=== PATIENT | female | born 1975 | race Asian ===

== ENCOUNTER 2020-02-03 09:41 | Emergency (ER) | payer OTHER, SELFPAY ==
--- NOTE | 2020-02-03 09:44 | ED_ITS ---
HPI - General Adult General Chief complaint: Back Pain/Injury Stated complaint: back pain the whole thing Time Seen by Provider: 02/03/20 09:43 Source: patient Mode of arrival: Ambulatory Limitations: no limitations History of Present Illness HPI narrative: 44-year-old female here for evaluation of bilateral back pain. She states that it starts from just below are shoulder blades and extends down to her hips. Is been going on for the past 2 days. She states that just prior to this she was moving some heavy rocks around her garden. There is not 1 specific incident that caused her pain to happen. Has tried some [id number] ibuprofen which he states helped for short period of time but then the symptoms returned. She also tried some of her 's oxycodone which apparently has not helped any of her symptoms. Came in this morning because she had a very difficult time getting out of bed. She denies any other associated symptoms. No rashes. Related Data Home Medications Medication Instructions Recorded Confirmed [ CONTROL PILLS] QDAY #0 05/12/13 Previous Rx's Medication Instructions Recorded cyclobenzaprine 10 mg PO TID PRN #12 tab 02/03/20 naproxen [Naprosyn] 500 mg PO BID PRN #30 tab 02/03/20 Review of Systems Constitutional Constitutional: Denies fever(s) and Denies headache(s) ENT Ears, Nose, Mouth, and Throat: Denies vertigo, Denies dizziness, Denies headache(s) and Denies disequilibrium Cardiovascular Cardiovascular: Denies chest pain and Denies dyspnea Respiratory Respiratory: Denies dyspnea Gastrointestinal Gastrointestinal: Denies abdominal pain Musculoskeletal Musculoskeletal: Reports back pain Integumentary/Breasts Skin/Breast: Denies lesions and Denies rash Neurologic Neurologic: Denies behavioral changes, Denies vertigo, Denies dizziness, Denies headache(s), Denies paresthesias and Denies disequilibrium Psychiatric Psychiatric: Denies behavioral changes Hematologic/Lymphatic Hematologic/Lymphatic: Denies easy bleeding and Denies easy bruising Patient History Medical History Healthy adult (Acute) Social History Smoking Status: Never smoker Exam Initial Vital Signs Initial Vital Signs: Vital Signs Temperature 98.3 F 02/03/20 09:49 Pulse Rate 91 H 02/03/20 09:49 Respiratory Rate 16 02/03/20 09:49 Blood Pressure 133/83 02/03/20 09:49 Pulse Oximetry 99 02/03/20 09:49 Const General: cooperative and comfortable Limitations: mental status not altered HENHI Head: normal to inspection and normocephalic Resp Effort & Inspection: normal respiratory effort Auscultation: clear to auscultation bilaterally Back/Spine/Pelvis Cervical Spine: No cervical spasm and No cervical spinal tenderness Thoracic/Lumbar Spine: paraspinal tenderness, No thoracic spinal tenderness and No lumbar spinal tenderness Skin Lesions: no lesions Rashes: no rashes Neuro General: alert and awake Cognition: normal cognition Gait: normal gait Extrem General: normal to inspection and capillary refill normal Psych Appearance: grossly normal and well kempt Course Vital Signs Vital signs: Vital Signs - 8 hr 02/03/20 09:49 Temperature 98.3 F Pulse Rate 91 H Respiratory Rate 16 Blood Pressure 133/83 Pulse Oximetry 99 Medical Decision Making MDM Narrative Medical decision making narrative: I suspect symptoms are musculoskeletal in origin. There lateral along the erector spinae muscles. We did discuss rice. Discussed massage ice and heat and staying active. Was sent home with muscle relaxers. Feel we could hold on radiologic studies for now. Patient was given return precautions and follow-up instructions. She expressed understanding and agreement. Discharge Plan Departure Patient Disposition: Home Clinical Impression: Back strain Qualifiers: Encounter type: initial encounter Qualified Code(s): S39.012A - Strain of muscle, fascia and tendon of lower back, initial encounter Instructions: Activity May Be Better then Rest for Low Back Pain Recovery, DI for Back Strain or Sprain Activity Restrictions/Additional Instructions: Recommend that you continue with light stretching, heat/ice, massage and staying as active as possible. These have all been shown to improve the condition that you have. Also remember the you continue to take the anti-inflammatories has directed. Also take the muscle relaxers as directed. Contact your primary provider for follow-up. The prescriptions have been electronically transmitted to [facility] Prescriptions: New naproxen [Naprosyn] 500 mg tablet 500 mg PO BID PRN (Reason: pain) Qty: 30 RF: 0 cyclobenzaprine 10 mg tablet 10 mg PO TID PRN (Reason: muscle spasm) Qty: 12 RF: 0 No Action [ CONTROL PILLS] QDAY Qty: 0 RF: 0
[2020-02-03 09:49] VITALS: BP 133/83; PULSE 91; RESP 16; TEMP 36.8; O2SAT 99; BMI 24.0
== END 2020-02-03 10:02 | disposition home or self-care (01) ==
PROVIDERS: Emergency Provider Emergency Medicine
DX: S39.012A Strain of muscle, fascia and tendon of lower back, initial encounter (principal); X50.0XXA Overexertion from strenuous movement or load, initial encounter
CPT/HCPCS: 99281

== ENCOUNTER → 2020-02-05 07:35 | Outpatient (CLI) | payer OTHER, SELFPAY ==
--- NOTE | 2020-02-05 | DI.US.S_ITS ---
PROCEDURE: US PELVIC COMPLETE INDICATIONS: LEFT LOWER QUADRANT MASS TECHNIQUE: Real-time scanning was performed of the pelvic organs, with image documentation. Additional endovaginal scanning was necessary due to incomplete visualization of the adnexal and endometrial structures by transabdominal scanning. COMPARISON: None. FINDINGS: Transabdominal scanning: Limited scanning through the kidneys shows no hydronephrosis. No pathologic free abdominal or pelvic fluid. Endovaginal scanning: Uterus: Uterus 12.8 x 5.8 x 5.4 cm. The endometrium measures 2 mm in combined thickness. Small amount of fluid is noted within the endometrial cavity. There is a focal calcification measuring 1.3 x 0.8 x 0.6 cm in size. This may represent sequela of previous trauma, inflammation/infection, or surgical change. Ovaries: Right ovary measures 3.4 x 2.6 x 3.0 cm. There is a 1.7 cm simple cyst seen on the right. The left ovary is not definitively visualized. There is a large 13.0 x 9.7 x 10.1 cm cystic structure in the midline pelvis which appears avascular and contains diffuse low-level internal echoes. No focal internal solid components visualized. No thick internal septations. Its origin is not definitively visualized. IMPRESSION: Large midline cystic structure in the pelvis measuring 13.0 x 9.7 x 10.1 cm with findings suggestive of an endometrioma versus hemorrhagic cyst. Its origin is not definitively visualized. Additionally, the left ovary was not well-visualized on today's study. Recommend followup pelvic ultrasound in 6-12 weeks for reevaluation. If findings persist, a pelvic MRI can be considered at that time to better characterize. Dictated by: Gilberto Landis M.D. on 02/05/2020 at 8:31 Approved by: Gilberto Landis M.D. on 02/05/2020 at 8:38
--- NOTE | 2020-02-05 | DI.CT.S_ITS ---
PROCEDURE: CT ABDOMEN PELVIS W CON INDICATIONS: Left lower quadrant abdominal swelling, mass TECHNIQUE: After the administration of oral and intravenous contrast, 5 mm thick sections acquired from the diaphragms to the symphysis. 5 mm thick coronal and sagittal reformats were performed. For radiation dose reduction, the following was used: automated exposure control, adjustment of mA and/or kV according to patient size. COMPARISON: [facility], , PELVIC COMPLETE, 02/05/2020, 7:43. FINDINGS: Image quality: Excellent. ABDOMEN: Lung bases: Lung bases are clear. Heart size is normal. Solid organs: Mild subcapsular enhancement seen within the dome/left lobe image 16/2 and top of the liver dome image 13/2, possibly vascular shunting although nonspecific Hepatic steatosis. Gallbladder grossly negative. Biliary system is non-dilated. Pancreas enhances normally. Spleen is normal in size and enhancement. No adrenal nodules. Kidneys are normal in size and enhancement, without hydronephrosis. Peritoneum and bowel: Stomach, small bowel, and colon loops are normal in caliber and wall thickness. No free fluid or air. Nodes and vessels: No retroperitoneal or mesenteric adenopathy. Aorta and inferior vena cava are normal in caliber. Miscellaneous: No ventral hernias. PELVIS: Genitourinary: Large heterogeneous cystic and solid mass is seen occupying the pelvis overall measuring 16.0 x 9.3 cm on axial image 54/2. There is associated calcification measuring 5 mm on image 58/2. An ovary appears on image 52/2 in the right pelvis although the exact laterality is unclear given mass effect from pelvic mass. Miscellaneous: No inguinal hernias or adenopathy. Bones: No suspicious bony lesions. No vertebral body compression fractures. IMPRESSION: Large heterogeneous cystic and solid mass within the pelvis, highly suspicious for ovarian neoplasm and corresponds to the prior ultrasound findings. Recommend further oncologic surgical consultation and laparoscopic workup Subcentimeter areas of subcapsular enhancement within the dome of the liver, possibly vascular shunting although recommend attention to this area on followup studies Dictated by: Raheem Gallagher M.D. on 02/05/2020 at 9:43 Approved by: Raheem Gallagher M.D. on 02/05/2020 at 13:01
== END ==
PROVIDERS: PCP Student in an Organized Health Care Education/Training Program; Referring Provider Student in an Organized Health Care Education/Training Program; Visit Provider Student in an Organized Health Care Education/Training Program
DX: R19.04 Left lower quadrant abdominal swelling, mass and lump (principal); R10.32 Left lower quadrant pain
CPT/HCPCS: 74177; 76830; 76856; Q9967

== ENCOUNTER → 2021-09-01 11:55 | Outpatient (CLI) | payer OTHER, SELFPAY ==
[2021-09-01 15:42] LABS: Luteinizing Hormone 26.3 mIU/mL
[2021-09-03 14:41] LABS: Estrogen 319 pg/mL (.)
== END ==
PROVIDERS: PCP Family Medicine; Referring Provider Family Medicine; Visit Provider Family Medicine
DX: N95.1 Menopausal and female climacteric states (principal)
CPT/HCPCS: 36415; 82672; 83002

== ENCOUNTER → 2022-06-09 10:45 | Outpatient (CLI) | payer OTHER, SELFPAY ==
--- NOTE | 2022-06-09 10:47 | DI.US.S_ITS ---
PROCEDURE: US PELVIC COMPLETE INDICATIONS: RIGHT PELVIC PAIN TECHNIQUE: Real-time scanning was performed of the pelvic organs, with image documentation. Additional endovaginal scanning was necessary due to incomplete visualization of the adnexal and endometrial structures by transabdominal scanning. COMPARISON: [facility], , US PELVIC COMPLETE, 02/05/2020, 7:43. FINDINGS: Uterus: The uterus is surgically absent. Ovaries: The right ovary measures 3.6 x 2.1 x 2.0 cm, with a calculated ovarian volume of 7.9 cc. There are 2 simple right ovarian cysts, which measure 1.9 and 1.8 cm in diameter, respectively. There are fewer than 12 follicles within the right ovary. Other: No pathologic free abdominal or pelvic fluid. IMPRESSION: 1. 2 simple right ovarian cysts. In a premenopausal female, these are within normal limits for size. In a postmenopausal female, annual sonographic follow-up is recommended. We strive to produce accurate, complete, and clear reports of imaging services. To assist us in improving patient care, this report was composed using standard report templates and voice recognition software. Therefore, it may contain abnormal punctuation, insertions and/or omissions. Occasional wrong-word or sound-alike substitutions may occur. Though we review the report and make efforts to correct it, we do recommend that the report be read carefully in proper context to recognize any text inaccuracies. Dictated by: Azucena Mehta M.D. on 06/09/2022 at 12:17 Approved by: Azucena Mehta M.D. on 06/09/2022 at 12:19
== END ==
PROVIDERS: PCP Family Medicine; Referring Provider Family Medicine; Visit Provider Family Medicine
DX: Z90.721 Acquired absence of ovaries, unilateral (principal); R10.31 Right lower quadrant pain; Z90.710 Acquired absence of both cervix and uterus; N83.291 Other ovarian cyst, right side
CPT/HCPCS: 76830; 76856; 93976

== ENCOUNTER → 2023-03-08 10:33 | Outpatient (CLI) | payer OTHER, SELFPAY ==
[2023-03-08 11:55] LABS: Add Manual Diff / Slide Review NO; Basophils Absolute Auto 0 /uL (0-100); Eosinophils Absolute Auto 100 /uL (0-450); Eosinophils Percent Auto 1.5 % (2-4); Hematocrit 42.4 % (36-46); Hemoglobin 14.2 g/dL (12.0-16.0); Lymphocytes Absolute Auto 1700 /uL (1100-4500); Mean Corpuscular HGB Conc 33.6 % (30-36); Mean Corpuscular Hemoglobin 29.5 PG (26-34); Monocytes Absolute Auto 400 /uL (0-900); Monocytes Percent Auto 8.7 % (3-14); Neutrophils Absolute Auto 1900 /uL (1500-7000); Neutrophils Percent Auto 46.8 % (50-75); Platelet Count 254 X10^3/uL (150-400); Red Blood Cell Count 4.81 X10^6/uL (4.0-5.2); Red Cell Distribution Width 12.4 % (11.6-14.8)
[2023-03-08 12:02] LABS: HEMOLYSIS < 15 (0-50)
[2023-03-08 12:07] LABS: Alanine Aminotransferase 32 IU/L (<35); Albumin 4.5 g/dL (3.5-5.0); Albumin Globulin Ratio 1.2 (1.0-2.8); Alkaline Phosphatase 53 U/L (38-126); Aspartate Aminotransferase 28 IU/L (14-36); BUN Creatinine Ratio 19.6 (6-22); Bilirubin Total 0.5 mg/dL (0.2-1.3); Blood Urea Nitrogen 11 mg/dL (7-17); Calcium 9.3 mg/dL (8.4-10.2); Carbon Dioxide 29 mmol/L (22-32); Chloride 101 mmol/L (98-107); Cholesterol 312 mg/dL (140-199); Estimated Glomerular Filt Rate > 60 mL/min (>60); Globulin 3.9 g/dL (1.7-4.1); Glucose 101 mg/dL (70-100); HDL Cholesterol 76 mg/dL (40-60); LDL Cholesterol Calculated 211 mg/dL (<100); Potassium 3.9 mmol/L (3.4-5.1); Sodium 137 mmol/L (137-145); Total Protein 8.4 g/dL (6.3-8.2); Triglycerides 125 mg/dL (35-150)
[2023-03-08 12:38] LABS: Erythrocyte Sedimentation Rate 1 MM/HR (0-20)
[2023-03-08 12:40] LABS: TSH w/ Reflex to FT4 1.44 uIU/mL (0.47-4.68)
[2023-03-08 12:54] LABS: Luteinizing Hormone 31.2 mIU/mL
[2023-03-08 13:01] LABS: C-Reactive Protein Quant < 0.5 mg/dL (<1.0)
[2023-03-08 13:07] LABS: Rheumatoid Factor < 8.6 IU/mL (<12.0)
[2023-03-09 21:52] LABS: CCP Antibodies IgG/IgA 5 units (0-19)
[2023-03-11 19:34] LABS: ANA Screen, IFA Negative (.)
[2023-03-13 18:02] LABS: Estrogen 72 pg/mL (.)
== END ==
PROVIDERS: PCP Family Medicine; Referring Provider Family Medicine; Visit Provider Family Medicine
DX: G47.00 Insomnia, unspecified (principal); M25.50 Pain in unspecified joint; M25.60 Stiffness of unspecified joint, not elsewhere classified; Z90.710 Acquired absence of both cervix and uterus; N95.1 Menopausal and female climacteric states
CPT/HCPCS: 36415; 80053; 80061; 82672; 83002; 84443; 85025; 85651; 86038; 86140; 86200; 86430

== ENCOUNTER → 2023-03-29 13:39 | Outpatient (CLI) | payer OTHER, SELFPAY | PROVIDERS: Family Provider Family Medicine; PCP Family Medicine; Referring Provider Family Medicine; Visit Provider Family Medicine | DX: R00.2 Palpitations (principal) | CPT/HCPCS: 93246 ==

== ENCOUNTER → 2024-04-26 12:08 | Outpatient (CLI) | payer OTHER, SELFPAY ==
[2024-04-26 12:48] LABS: Add Manual Diff / Slide Review NO; Basophils Absolute Auto 0 /uL (0-100); Basophils Percent Auto 0.8 % (0-2); Eosinophils Absolute Auto 100 /uL (0-450); Eosinophils Percent Auto 1.3 % (2-4); Hematocrit 40.2 % (36-46); Hemoglobin 13.4 g/dL (12.0-16.0); Lymphocytes Absolute Auto 1700 /uL (1100-4500); Lymphocytes Percent Auto 32.1 % (25-40); Mean Corpuscular HGB Conc 33.3 % (30-36); Mean Corpuscular Hemoglobin 29.1 PG (26-34); Mean Corpuscular Volume 87.2 fL (80-100); Monocytes Absolute Auto 600 /uL (0-900); Monocytes Percent Auto 10.3 % (3-14); Neutrophils Absolute Auto 3000 /uL (1500-7000); Neutrophils Percent Auto 55.5 % (50-75); Platelet Count 276 X10^3/uL (150-400); Red Blood Cell Count 4.61 X10^6/uL (4.0-5.2); Red Cell Distribution Width 12.5 % (11.6-14.8); White Blood Cell Count 5.4 X10^3/uL (4.5-11.0)
[2024-04-26 13:15] LABS: Alanine Aminotransferase 23 IU/L (<35); Albumin 4.6 g/dL (3.5-5.0); Albumin Globulin Ratio 1.5 (1.0-2.8); Alkaline Phosphatase 58 U/L (38-126); Aspartate Aminotransferase 30 IU/L (14-36); BUN Creatinine Ratio 16.9 (6-22); Bilirubin Total 0.4 mg/dL (0.2-1.3); Blood Urea Nitrogen 11 mg/dL (7-17); Calcium 9.9 mg/dL (8.4-10.2); Carbon Dioxide 27 mmol/L (22-32); Chloride 105 mmol/L (98-107); Cholesterol 323 mg/dL (140-199); Estimated Glomerular Filt Rate > 60 mL/min (>60); Globulin 3.1 g/dL (1.7-4.1); Glucose 97 mg/dL (70-100); HDL Cholesterol 86 mg/dL (40-60); HEMOLYSIS < 15 (0-50); LDL Cholesterol Calculated 216 mg/dL (<100); Sodium 138 mmol/L (137-145); Total Protein 7.7 g/dL (6.3-8.2); Triglycerides 106 mg/dL (35-150); Uric Acid 4.2 mg/dL (2.5-6.2)
[2024-04-26 13:41] LABS: TSH w/ Reflex to FT4 1.16 uIU/mL (0.47-4.68)
[2024-04-26 14:28] LABS: Hemoglobin A1C% w Est Avg Glu 5.8 % (4.0-6.0)
== END ==
PROVIDERS: Family Provider Family Medicine; PCP Family Medicine; Referring Provider Family Medicine; Visit Provider Family Medicine
DX: Z00.00 Encounter for general adult medical examination without abnormal findings (principal); M10.9 Gout, unspecified; R73.03 Prediabetes
CPT/HCPCS: 36415; 80053; 80061; 83036; 84443; 84550; 85025

== ENCOUNTER → 2024-05-04 07:40 | Outpatient (CLI) | payer OTHER, SELFPAY ==
--- NOTE | 2024-05-04 07:41 | DI.US.S_ITS ---
PROCEDURE: US THYROID INDICATIONS: lymphadenopathy TECHNIQUE: Real-time scanning was performed of the thyroid gland, with image documentation. COMPARISON: None. FINDINGS: Thyroid: Right lobe measures 4.9 x 1.4 x 1.6 cm. Left lobe measures 4.6 x 1.3 x 1.4 cm. Isthmus is 0.2 cm thick. Echotexture is heterogeneous. There are several colloid cysts in each lobe, several in the right and a few in the left, the largest measuring 0.7 cm. The patient's area of pain corresponds to a few minimally prominent cervical chain lymph nodes which maintain fatty lory. Nodule number: 1 Location: Right superior pole Size: 1.3 x 0.9 x 1.0 cm. Composition: Solid Echogenicity: Isoechoic to hypoechoic Shape: wider than tall. Margins: Smooth, continually calcified Echogenic foci: Peripheral calcification Total points: Five ACR TI-RADS category: Four, moderately suspicious Nodule number: 2 Location: Right midpole Size: 1.2 x 0.8 x 0.6 cm. Composition: Solid Echogenicity: Isoechoic Shape: wider than tall. Margins: Smooth Echogenic foci: Punctate Total points: Six ACR TI-RADS category: Four, moderately suspicious Nodule number: 3 Location: Right inferior pole Size: 1.3 x 1.1 x 0.8 cm. Composition: Solid Echogenicity: Isoechoic to hypoechoic Shape: wider than tall. Margins: Smooth Echogenic foci: Punctate, some with comet tail artifact Total points: 6-7 ACR TI-RADS category: Five, highly suspicious Nodule number: 4 Location: Left inferior pole Size: 1.1 x 0.9 x 0.8 cm. Composition: Solid Echogenicity: Isoechoic Shape: wider than tall. Margins: Smooth Echogenic foci: None Total points: Four ACR TI-RADS category: Four, moderately suspicious IMPRESSION: Mildly prominent benign appearing lymph nodes in the right neck. Incidental note of thyroid nodules for which follow-up is recommended for all, and fine needle aspiration recommended for nodule 3. ACR TI-RADS definitions and recommendations: TI-RADS 1 (benign): 0 points. FNA not needed. TI-RADS 2 (not suspicious): 2 points. FNA not needed. TI-RADS 3 (mildly suspicious): 3 points. * FNA if 2.5 cm or larger, follow up if 1.5 cm or larger (at 1, 3, and 5 years). TI-RADS 4 (moderately suspicious): 4-6 points. * FNA if 1.5 cm or larger, follow up if 1 cm or larger (at 1, 2, 3, and 5 years). TI-RADS 5 (highly suspicious): 7 points or more. * FNA if 1 cm or larger, follow up if 0.5 cm or larger (every year for 5 years). Dictated by: Kyra Whalen M.D. on 05/04/2024 at 22:00 Approved by: Kyra hWalen M.D. on 05/04/2024 at 22:16
== END ==
LOC: US 07:40
PROVIDERS: Family Provider Family Medicine; PCP Family Medicine; Referring Provider Family Medicine; Visit Provider Family Medicine
DX: R59.1 Generalized enlarged lymph nodes (principal); E04.2 Nontoxic multinodular goiter
CPT/HCPCS: 76536

== ENCOUNTER → 2024-06-29 08:24 | Outpatient (CLI) | payer OTHER, SELFPAY ==
--- NOTE | 2024-06-29 | PATH_ITS ---
Note [facility] Accession Number: [id number] TESTS RESULT FLAG UNITS REF RANGE LAB Clinician Provided Cytology Information No. of containers..01 Other (Miscellaneous) No. of containers..02 Previously Prepared Cytology Slide Source: RIGHT INFERIOR THYROID NODULE #3 DIAGNOSIS: 01 RIGHT INFERIOR THYROID NODULE #3, FINE NEEDLE ASPIRATION. NEGATIVE FOR MALIGNANT CELLS. ADEQUATE FOR EVALUATION. COLLOID AND FOLLICULAR GROUPS ARE PRESENT. BENIGN FOLLICULAR (GOITEROUS) NODULE ([place] CATEGORY II), SEE COMMENT. COMMENT: MICROSCOPIC EXAMINATION REVEALS A MILDLY CELLULAR ASPIRATE, COMPOSED OF COLLOID, FOLLICULAR GROUPS WITHOUT SIGNIFICANT CYTOLOGIC OR ARCHITECTURAL ATYPIA, AND FEW BACKGROUND MACROPHAGES. THESE FINDINGS SUPPORT A BENIGN FOLLICULAR (GOITEROUS) NODULE. CORRELATION WITH CLINICAL AND RADIOGRAPHIC FINDINGS IS RECOMMENDED. ACCORDING TO THE [place] REPORTING SYSTEM FOR THYROID CYTOPATHOLOGY, THE RISK OF MALIGNANCY IN THE CATEGORY BENIGN-CATEGORY II IS 0-3%; THEREFORE RECOMMEND CONTINUED ULTRASOUND SURVEILLANCE WITH REPEAT FNA IF THE NODULE SIGNIFICANTLY INCREASES IN SIZE. Pathologist ICD10: 01 E04.2 Signed out by: Nida Rojas MD, Pathologist NPI- [id number] Performed by: Christopher Lucero, [employer]isher ([facility]) Gross description: 01 30 CC, COLORLESS, CLEAR RECIEVED: IN CYTOLYT WITH 6 ALCOHOL FIXED AND 6 QUICK STAINED SLIDES ALSO 1 RNA VIAL WILL ON 09-27-2024.VO /VDU 07/02/2024 0817 Local FLAG LEGEND: L-Low Normal,H-High Normal,LL-Alert Low,HH-Alert High <-Panic Low,>-Panic High,A-Abnormal,AA-Critical Abnormal Performed at: 01 =Z [address], [place] [address] Josué Guido MD, Performed at: [address] [address], [place], [place] [id number] MD Josué Guido MD Phone: [phone]
--- NOTE | 2024-06-29 08:25 | DI.US.S_ITS ---
PROCEDURE: US FINE NEEDLE ASPIRATION INDICATIONS: RIGHT INFERIOR NODULE #3 TECHNIQUE: The indications, alternatives, benefits, risks, and complications of the procedure were explained to the patient. Written informed consent was obtained and placed in the chart. The thyroid region was examined sonographically and a site was chosen for ultrasound guided percutaneous sampling. The skin was prepared and draped in the usual fashion, and anesthetized with 1% lidocaine infiltrated from the skin down to the thyroid gland. Multiple passes were then performed, with contents emptied into an appropriate pathology specimen container. A bandage was applied to the area of access at completion of the study. COMPARISON: None. FINDINGS: Location(s) of lesion(s) sampled: Lower pole right thyroid lobe nodule [place]: 25 gauge hypodermic needles. Number of passes: 6 Medications: 1% lidocaine for local anaesthesia. Complications: None. IMPRESSION: Successful ultrasound-guided thyroid nodule fine needle aspiration, with cytology results pending. Please see chart below for management recommendations based on cytology results. [facility] ReportingRecommendationsNon-diagnostic* Repeat US-guided FNA, with on-site cytology evaluation if possible. * Repeated non-diagnostic nodules without high suspicion US features: close observation vs surgical consult. * Consider surgery if nodule has high suspicion US features, grows >20% in 2 dimensions on followup, or patient has clinical risk factors for malignancy. Benign* If nodule has high suspicion US features: repeat US and FNA within 12 months. * If nodule has low to intermediate suspicion US features: repeat US at 12-24 months. If nodule grows (20% increase in at least 2 dimensions, with minimal increase of 2 mm or >50% change in volume), or development of new suspicious US features, then repeat FNA or continue followup. * If nodule has very low suspicion US features: followup US at >24 months. Atypia of undetermined significance, follicular lesion of undetermined significanceRepeat FNA, molecular testing, followup US, or surgical consult.Follicular neoplasm, suspicious for follicular neoplasmSurgical consult; also consider molecular testing. Suspicious for malignancySurgical consult.MalignantSurgical consult. Dictated by: Bennie Ny M.D. on 06/29/2024 at 11:56 Approved by: Bennie Ny M.D. on 06/29/2024 at 11:56
== END ==
PROVIDERS: Family Provider Family Medicine; PCP Family Medicine; Referring Provider Family Medicine; Visit Provider Family Medicine
DX: E04.2 Nontoxic multinodular goiter (principal)
CPT/HCPCS: 10005